=== PATIENT | male | born 1940 | race Caucasian/White ===

== ENCOUNTER → 2016-08-10 | Outpatient (CLI) | payer BC ==
[~2016-08-10] MED LIST: ACET-1256 PO; ALLO100T PO; APIX1TAB3 PO; ASPCH81 PO; ATOR-24 PO; BNC20 PO; CALC500C70 PO; CLOP1TAB15 PO; CYAN500T SL; DOCU-94 PO; FERR1TAB61 PO; GLC/500 PO; GLC500 PO; GLUCTAB7 PO; KFL500HP PO; LATA0.009 OPB; LSX20 PO; MULT-188 PO; MULT-663 PO; NTRGSL/4 UT; OLME5TAB3 PO; REPA0.5T PO; REPA1TAB5 PO; SULF10SO13 OP
[2016-08-10 11:31] LABS: ESTIMATED AVERAGE GLUCOSE 154 mg/dl; HA1C FLAG Normal (Normal)
[2016-08-10 11:44] LABS: HEMATOCRIT 38.3 % (42-52); MEAN CELL VOLUME 93.4 fL (80-100); MEAN CORPUSCULAR HEMOGLOBIN 31.2 pg (25-34); MEAN CORPUSCULAR HGB CONC 33.4 g/dl (32-36); MEAN PLATELET VOLUME 9.5 fL (7.4-10.4); PLATELET COUNT 184 K/uL (130-400); WHITE BLOOD COUNT 5.81 K/uL (4.8-10.8)
[2016-08-10 11:51] LABS: ALT/SGPT 32 U/L (12-78); BLOOD UREA NITROGEN 27 mg/dl (7-18); BUN/CREATININE RATIO 16.9 (10-20); CALCIUM 9.2 mg/dl (8.5-10.1); CARBON DIOXIDE 20 mmol/L (21-32); CHLORIDE 103 mmol/L (98-107); CHOLESTEROL 98 mg/dl (0-200); GLUCOSE 114 mg/dl (70-99); POTASSIUM 4.7 mmol/L (3.5-5.1); SODIUM 135 mmol/L (136-145)
[2016-08-10 11:52] LABS: COMPLETE YES
[2016-08-10 12:01] LABS: ALB/GLOB RATIO 1.1 (0.9-2); ALKALINE PHOSPHATASE 82 U/L (45-117); AST/SGOT 18 U/L (15-37); CHOLESTEROL/HDL RATIO 2.6; FERRITIN 75.6 ng/ml (8.0-388.0); HDL CHOLESTEROL 37 mg/dl; LDL CHOLESTEROL CALCULATED 37 mg/dl; TRIGLYCERIDES 118 mg/dl (0-150); VERY LOW DENSITY LIPOPROT CALC 24 mg/dl
== END | disposition home or self-care (01) ==
LOC: C.LAB 10:17
PROVIDERS: ATTEND Internal Medicine
DX: E11.21 Type 2 diabetes mellitus with diabetic nephropathy (principal); D64.9 Anemia, unspecified; R00.1 Bradycardia, unspecified

== ENCOUNTER → 2016-09-21 | Outpatient (CLI) | payer BC | END | disposition home or self-care (01) | LOC: C.RDSM 11:59 | PROVIDERS: ATTEND Orthopaedic Surgery Sports Medicine | DX: R52 Pain, unspecified (principal) ==

== ENCOUNTER → 2016-11-09 | Outpatient (CLI) | payer BC ==
[2016-11-09 13:00] LABS: BASO % 0.4 %; BASO ABS # 0.02 K/uL (0-0.2); COMPLETE YES; IG% 0.2 %; LYMPH % 29.9 %; LYMPH ABS # 1.61 K/uL (1.2-3.4); MEAN CELL VOLUME 94.1 fL (80-100); MEAN PLATELET VOLUME 9.3 fL (7.4-10.4); MONO % 8.3 %; NEUT % 58.2 %; PLATELET COUNT 185 K/uL (130-400); RED BLOOD COUNT 3.93 M/uL (4.7-6.1); WHITE BLOOD COUNT 5.39 K/uL (4.8-10.8)
[2016-11-09 13:05] LABS: BLOOD UREA NITROGEN 23 mg/dl (7-18); BUN/CREATININE RATIO 16.1 (10-20); CALCIUM 8.9 mg/dl (8.5-10.1); CARBON DIOXIDE 24 mmol/L (21-32); CHLORIDE 111 mmol/L (98-107); GLUCOSE 141 mg/dl (70-99); POTASSIUM 4.4 mmol/L (3.5-5.1); SODIUM 142 mmol/L (136-145)
[2016-11-09 13:12] LABS: FERRITIN 95.6 ng/ml (8.0-388.0)
[2016-11-09 13:26] LABS: ESTIMATED AVERAGE GLUCOSE 163 mg/dl; HA1C FLAG Normal (Normal)
[2016-11-09 13:42] LABS: RATIO 13.4 mcg/mg (0-30.0)
== END | disposition home or self-care (01) ==
LOC: C.LAB 11:28
PROVIDERS: ATTEND Internal Medicine
DX: E11.9 Type 2 diabetes mellitus without complications (principal); D50.9 Iron deficiency anemia, unspecified; D51.9 Vitamin B12 deficiency anemia, unspecified

== ENCOUNTER 2016-12-18 13:33 | Emergency (ER) | payer BC ==
[~2016-12-18] VITALS: Ht 182.9 cm; Wt 110.4 kg
[~2016-12-18 13:33] MED LIST changes: -ACET-1256 PO; -APIX1TAB3 PO; -GLUCTAB7 PO; -KFL500HP PO; -OLME5TAB3 PO; -REPA1TAB5 PO
[2016-12-18 13:54] VITALS: TEMP 36.6; Ht 182.9 cm; Wt 110.4 kg
--- NOTE | 2016-12-18 15:29 | EMERGENCY ROOM VISIT NOTE ---
History First contact with patient: 14:58 Chief Complaint: HEAD INJURY (MINOR) Stated Complaint: BACK OF HEAD, SCALP AVULSION, DIZZY, FALL History of Present Illness The patient is a 76 year old male who presents to the Emergency Room for a recheck of a wound on his scalp. The patient initially had a fall 2 days ago. The patient reports that he slipped off of a chair falling backwards and striking his head. There was reportedly loss of consciousness. The patient was taken to [facility]. A CT scan was reportedly performed. No internal hemorrhage was noted. The wound was dressed. He was supposed to return to the emergency department today for a recheck. The patient does admit to feeling slightly off balance today. This isn't however unusual for him. The patient suffered a stroke in 2001. He does have intermittent unsteadiness since the stroke. The patient is on Eliquis, aspirin and Plavix for a history of CVA and a flutter. Review of Systems 10 system review performed and negative unless noted in HPI or below Past Medical/Surgical History Medical Problems: (1) Mobitz type I incomplete atrioventricular block CVA A flutter History of coronary artery disease Diabetes Status post CABG x 3 in 2010 Family History FH: heart disease FHx: cancer Kidney disease Kidney stones Social History Smoking Status: Never Smoker Drug Use: none Marital Status: Housing Status: lives alone Occupation Status: retired Current/Historical Medications Scheduled Acetaminophen (Tylenol), 2 TAB PO BID Allopurinol (Zyloprim), 1 TAB PO QAM Apixaban (Eliquis), 1 TAB PO BID Atorvastatin (Lipitor), 20 MG PO HS Calcium/Vitamin D (Os-Drew 500 Plus D), 1 TAB PO TID Cephalexin Monohydrate (Cephalexin), 1 TAB PO BID Clopidogrel (Plavix), 75 MG PO QAM Cyanocobalamin (Vitamin B-12), 500 MCG SL QAM Docusate Sodium (Colace), 2 CAP PO HS Ferrous Sulfate (Iron), 1 TAB PO BID Furosemide (Furosemide), 1 TAB PO Q2D Xrotsfebget-Jcjjowojwel-Blq C- (Glucosamine Chondroitin), 1 TAB PO QPM Latanoprost (Xalatan 0.005% Oph Gregoria), 1 DROPS OPB HS Metformin HCl (Metformin HCl), 2 TABS PO DINNER Metformin Hcl (Glucophage), 500 MG PO BREAKFAST, LUNCH Multiple Vitamins W/ Minerals (Ocuvite), 1 TAB PO QAM Nitroglycerin (Nitrostat), 0.4 MG UT PRN Olmesartan Medoxomil (Olmesartan Medoxomil), 2 TAB PO QAM Repaglinide (Prandin), 1 TAB PO BID Scheduled PRN Multiple Minerals W/ Vitamins (Citracal Plus), 1 TAB PO DAILY PRN for Constipation Allergies Coded Allergies: Hydrochlorothiazide (Verified Allergy, Unknown, dizzy, 12/18/16) Losartan (Verified Allergy, Unknown, dizzy, 12/18/16) Amlodipine (Verified Adverse Reaction, Mild, vertigo, 12/18/16) Physical Exam Vital Signs Date Time Temp Pulse Resp B/P (MAP) Pulse Ox O2 Delivery O2 Flow Rate FiO2 12/18/16 18:16 61 20 140/85 99 12/18/16 15:39 62 20 144/80 98 Room Air 12/18/16 13:54 36.6 72 20 135/74 94 Room Air Physical Exam VITALS: Vitals are noted on the nurse's note and reviewed by myself. Vital signs stable. GENERAL: 76-year-old male, in no acute distress, SKIN: The skin was without rashes, erythema, edema, or bruising. There is no tenting of the skin. Capillary reflex less than 2 seconds. HEAD: Approximately 1 cm jagged, linear laceration noted at the posterior aspect of the scalp with a hematoma underlying. There is mild oozing of blood. The wound appears clean. There are no roland signs or raccoon eyes. NECK: Cervical spine is nontender EYES: Pupils equal round and reactive to light and accommodation. Conjunctivae without injection, sclerae without icterus. Extraocular movements intact. NECK:Cervical spine is nontender. No JVD. MUSCULOSKELETAL: +1 pitting edema noted in the lower extremities without any erythema, tenderness or warmth appreciated bilaterally. NEURO: Patient was alert and oriented to person place and time. Cerebellar function intact. Negative Romberg. No focal neurological deficits. Medical Decision & Procedures ER Provider Diagnostic Interpretation: Patient: VALERIO ADLER Address1: [address] Rec: [id number] Address2: Acct ID: [id number] [facility] Zip: [place] [address] Date: 1940 Sex: M Room/Bed: Ref Phy: Jose Miguel Chappell M.D. SC: CARLA Att Phy: Report #: [id number] [facility] Phy: Jose Miguel Chappell M.D. Test: HWO Admit Phy: Dethistler Operator: BRIAN Interpreting Phy: Donavon Valerio M.D. Diagnosis: BACK OF HEAD, SCALP AVULSION , DIZZY, FALL Ordering Phy: Christine Ludwig PA-C Service Date: 12/18/16 Admit Date: 12/18/16 MNE: [id number] CONF: DICTATED BY: Donavon Valerio M.D.]] CC: Manish Sifuentes M.D. Pro, Jeffrey W., M.D. Urban, Angela P., PA-C Endcc: [~ rep ct add3]] CT SCAN OF THE BRAIN WITHOUT IV CONTRAST CLINICAL HISTORY: Fall 2 days ago. Anticoagulated patient. COMPARISON STUDY: CT of the brain dated 02/14/2016. TECHNIQUE: Unenhanced axial CT scan of the brain is performed from the vertex to the skull base. CT DOSE: 614.27 mGy.cm FINDINGS: Brain parenchyma: There are age-related involutional changes noting mild to moderate patchy subcortical and periventricular microangiopathic change. Foci of left occipital and left cerebellar encephalomalacia are consistent with remote infarcts. There is no hemorrhage, mass effect, or evidence of acute territorial ischemia by CT criteria. Emerson-white matter is preserved. No extra-axial fluid collection is seen. Ventricles, sulci, cisterns: Prominent secondary to involutional change. Intracranial vasculature: There is atherosclerotic calcification of the cavernous carotid and vertebral arteries. Calvarium: The skeletal structures are osteopenic. No depressed calvarial fracture is seen. Soft tissues: There is a left posterior parietal scalp hematoma. Sinuses and mastoids: The visualized paranasal sinuses are clear. The mastoid air cells are well pneumatized. Orbits: The bony orbits are grossly intact. There are bilateral ocular lens implants. IMPRESSION: 1. Senescent changes and remote infarcts as above. There is no hemorrhage, mass effect, or evidence of acute territorial ischemia by CT criteria. 2. Left posterior parietal scalp hematoma. No depressed calvarial fracture is seen. Electronically signed by: Donavon Valerio M.D. 12/18/2016 4:12 PM Dictated Date/Time: 12/18/2016 4:08 PM The status of this report is Signed. Draft = Not yet reviewed or approved by Radiologist. Signed = Reviewed and approved by Radiologist. Procedure The wound was unbandaged, thoroughly cleansed with normal saline and repeat bandage with adequate hemostasis ED Course The patient was seen and examined CT of the head was performed and reviewed in addition to outpatient records. Medications were reviewed. The wound was examined and redressed Discharge instructions were reviewed, and the patient was discharged home in good condition Medical Decision Differential diagnosis: Skull fracture, intracranial bleed, hematoma, superficial laceration This patient is a 76-year-old male that presented for a wound recheck. He initially had a mechanical fall 2 days ago. He is on blood thinners. Outpatient records were reviewed from [facility]. CT was negative for intracranial bleed. No skull fracture was identified. Given that the patient was complaining of feeling off balance, I repeated the CAT scan to rule out any new intracranial bleed. This was negative. The wound was redressed with Fibrillar hemostatic agent with hemostasis achieved. The patient was given a referral for the wound clinic. Case management helped the arrangements. Since the fibrillar needs to be soaked prior to removal, I told the patient if he had any issues getting in with his primary care physician or wound clinic doctor, he will return to the emergency department in 48 hours. He also agreed to return sooner for any worsening symptoms or recurrent bleeding. He will continue his current medication regimen as prescribed (given his risk of CVA). Impression Primary Impression: Encounter for wound re-check Additional Impression: Head injury Departure Information Referrals Pro,Jose Miguel Rome M.D. (PCP) Patient Instructions My [facility] Problem Qualifiers
[2016-12-18] MEDS ORDERED: GELATIN SPONGE SZ 100 EXT ONE (15:30)
[2016-12-18] MEDS ORDERED: GELATIN SPONGE 12-7MM ONE (15:37)
--- NOTE | 2016-12-18 16:13 | DIAGNOSTIC IMAGING REPORT ---
CT SCAN OF THE BRAIN WITHOUT IV CONTRAST CLINICAL HISTORY: Fall 2 days ago. Anticoagulated patient. COMPARISON STUDY: CT of the brain dated 02/14/2016. TECHNIQUE: Unenhanced axial CT scan of the brain is performed from the vertex to the skull base. CT DOSE: 614.27 mGy.cm FINDINGS: Brain parenchyma: There are age-related involutional changes noting mild to moderate patchy subcortical and periventricular microangiopathic change. Foci of left occipital and left cerebellar encephalomalacia are consistent with remote infarcts. There is no hemorrhage, mass effect, or evidence of acute territorial ischemia by CT criteria. Emerson-white matter is preserved. No extra-axial fluid collection is seen. Ventricles, sulci, cisterns: Prominent secondary to involutional change. Intracranial vasculature: There is atherosclerotic calcification of the cavernous carotid and vertebral arteries. Calvarium: The skeletal structures are osteopenic. No depressed calvarial fracture is seen. Soft tissues: There is a left posterior parietal scalp hematoma. Sinuses and mastoids: The visualized paranasal sinuses are clear. The mastoid air cells are well pneumatized. Orbits: The bony orbits are grossly intact. There are bilateral ocular lens implants. IMPRESSION: 1. Senescent changes and remote infarcts as above. There is no hemorrhage, mass effect, or evidence of acute territorial ischemia by CT criteria. 2. Left posterior parietal scalp hematoma. No depressed calvarial fracture is seen. Electronically signed by: Donavon Valerio M.D. 12/18/2016 4:12 PM Dictated Date/Time: 12/18/2016 4:08 PM
--- NOTE | 2016-12-18 16:25 | EMERGENCY ROOM VISIT NOTE ---
ED Visit Note First contact with patient: 14:58 I did evaluate and examine this patient myself. I did guide management for the patient. I agree with the APC's assessment as discussed. Please see the APC's dictation for further details. I did independently review the CT scan of the head. There is no intracranial hemorrhage.
[2016-12-18] MEDS ORDERED: APIX1TAB3 PO (16:48)
[2016-12-18] MEDS ORDERED: REPA1TAB5 PO (16:48)
[2016-12-18] MEDS ORDERED: KFL500HP PO (16:48)
[2016-12-18] MEDS ORDERED: OLME5TAB3 PO (16:48)
[2016-12-18] MEDS ORDERED: LSX20 PO (16:48)
[2016-12-18] MEDS ORDERED: GLUCTAB7 PO (16:52)
[2016-12-18] MEDS ORDERED: ACET-1256 PO (16:52)
[2016-12-18 18:16] VITALS: BP 140/85; PULSE 61; O2SAT 99
[2017-01-04] MEDS ORDERED: APIX1TAB3 PO (07:27)
== END 2016-12-18 18:19 | disposition home or self-care (01) ==
LOC: C.EDB 13:35 → C.EDA 18:19
DX: Z09 Encounter for follow-up examination after completed treatment for conditions other than malignant neoplasm (principal); S01.01XA Laceration without foreign body of scalp, initial encounter; W19.XXXA Unspecified fall, initial encounter; I44.1 Atrioventricular block, second degree; I48.92 Unspecified atrial flutter; E11.9 Type 2 diabetes mellitus without complications; I25.10 Atherosclerotic heart disease of native coronary artery without angina pectoris; Z95.1 Presence of aortocoronary bypass graft; Z79.01 Long term (current) use of anticoagulants; Z86.73 Personal history of transient ischemic attack (TIA), and cerebral infarction without residual deficits; Z79.84 Long term (current) use of oral hypoglycemic drugs; Z84.1 Family history of disorders of kidney and ureter

== ENCOUNTER 2016-12-20 11:01 | Emergency (ER) | payer BC ==
[~2016-12-20] VITALS: Ht 182.9 cm; Wt 109.7 kg
[~2016-12-20 11:01] MED LIST changes: +ACET-1256 PO; +APIX1TAB3 PO; -ASPCH81 PO; -BNC20 PO; +GLUCTAB7 PO; +KFL500HP PO; +OLME5TAB3 PO; -REPA0.5T PO; +REPA1TAB5 PO; -SULF10SO13 OP
[2016-12-20 11:09] VITALS: TEMP 36.6; Ht 182.9 cm; Wt 109.7 kg
--- NOTE | 2016-12-20 12:14 | DIAGNOSTIC IMAGING REPORT ---
HEAD CT NONCONTRAST CT DOSE: 821.00 mGycm HISTORY: Trauma. Mental status change. Fall on December 16, developed dizziness, hx Subdural. Anti coag TECHNIQUE: Multiaxial CT images of the head were performed without the use of intravenous contrast. Comparison: None. Findings: The paranasal sinuses and mastoid air cells are clear. The calvarium and skull base are intact. The ventricles and sulci are within normal limits. There is no mass, hematoma, midline shift, or acute infarct. Old infarct left cerebellum. No acute intracranial hemorrhage. Impression: No acute intracranial abnormality. Chronic change. Electronically signed by: Danie Julien M.D. 12/20/2016 12:13 PM Dictated Date/Time: 12/20/2016 12:09 PM
--- NOTE | 2016-12-20 12:44 | EMERGENCY ROOM VISIT NOTE ---
History First contact with patient: 11:38 Chief Complaint: WOUND RECHECK Stated Complaint: WOUND RECHECK Nursing Triage Summary: I need my dressing rewrapped I went to [place] first and had a scalp laceration. I had dressing change done here on sunday and I cant get into wound clinic until sunday. History of Present Illness The patient is a 76 year old male who presents to the Emergency Room via private vehicle with complaints of "wound recheck". The patient states that he had a laceration repaired at the [facility], where Adaptic was applied to the wound. He then was seen here recently and had his changed out for fibrilar. He then is here today because he conducted and the wound center until Sunday. He denies any problems with the wound. He is on a requests and Plavix. He has felt dizzy for the past 5 days, and denies fevers and chills. Review of Systems A complete 6-point Review of Systems was discussed with the patient, with pertinent positives and negatives listed in the History of Present Illness. All remaining Review of Systems questions can be considered negative unless otherwise specified. Past Medical/Surgical History Medical Problems: (1) Mobitz type I incomplete atrioventricular block Family History FH: heart disease FHx: cancer Kidney disease Kidney stones Social History Smoking Status: Never Smoker Drug Use: none Marital Status: Housing Status: lives alone Occupation Status: retired Current/Historical Medications Scheduled Acetaminophen (Tylenol), 2 TAB PO BID Allopurinol (Zyloprim), 1 TAB PO QAM Apixaban (Eliquis), 1 TAB PO BID Atorvastatin (Lipitor), 20 MG PO HS Calcium/Vitamin D (Os-Drew 500 Plus D), 1 TAB PO TID Cephalexin Monohydrate (Cephalexin), 1 TAB PO BID Clopidogrel (Plavix), 75 MG PO QAM Cyanocobalamin (Vitamin B-12), 500 MCG SL QAM Docusate Sodium (Colace), 2 CAP PO HS Ferrous Sulfate (Iron), 1 TAB PO BID Furosemide (Furosemide), 1 TAB PO Q2D Bwwswubtztq-Ldjcpbvtcpn-Ytp C- (Glucosamine Chondroitin), 1 TAB PO QPM Latanoprost (Xalatan 0.005% Oph Gregoria), 1 DROPS OPB HS Metformin HCl (Metformin HCl), 2 TABS PO DINNER Metformin Hcl (Glucophage), 500 MG PO BREAKFAST, LUNCH Multiple Vitamins W/ Minerals (Ocuvite), 1 TAB PO QAM Nitroglycerin (Nitrostat), 0.4 MG UT PRN Olmesartan Medoxomil (Olmesartan Medoxomil), 2 TAB PO QAM Repaglinide (Prandin), 1 TAB PO BID Scheduled PRN Multiple Minerals W/ Vitamins (Citracal Plus), 1 TAB PO DAILY PRN for Constipation Allergies Coded Allergies: Hydrochlorothiazide (Verified Allergy, Unknown, dizzy, 12/18/16) Losartan (Verified Allergy, Unknown, dizzy, 12/18/16) Amlodipine (Verified Adverse Reaction, Mild, vertigo, 12/18/16) Physical Exam Vital Signs Date Time Temp Pulse Resp B/P (MAP) Pulse Ox O2 Delivery O2 Flow Rate FiO2 12/20/16 12:57 60 18 135/68 98 12/20/16 11:09 36.6 83 18 179/86 98 Room Air Physical Exam VITAL SIGNS - Vital signs and nursing notes were reviewed. Stable. He is hypertensive in which he was notified about. GENERAL -76-year-old male appearing his stated age who is in no acute distress. Communicates well with provider and answers questions appropriately. SKIN -there is a healing laceration on the posterior scalp. Neurologically he is intact, without deficit. Medical Decision & Procedures ER Provider Diagnostic Interpretation: HEAD CT NONCONTRAST CT DOSE: 821.00 mGycm HISTORY: Trauma. Mental status change. Fall on December 16, developed dizziness, hx Subdural. Anti coag TECHNIQUE: Multiaxial CT images of the head were performed without the use of intravenous contrast. Comparison: None. Findings: The paranasal sinuses and mastoid air cells are clear. The calvarium and skull base are intact. The ventricles and sulci are within normal limits. There is no mass, hematoma, midline shift, or acute infarct. Old infarct left cerebellum. No acute intracranial hemorrhage. Impression: No acute intracranial abnormality. Chronic change. Electronically signed by: Danie Julien M.D. 12/20/2016 12:13 PM Dictated Date/Time: 12/20/2016 12:09 PM Medical Decision Patient was seen and evaluated as above. After obtaining a thorough history and physical examination the decision was made to re-apply the patient's dressing. After a thorough discussion he indicated that he was feeling dizzy over the past few days, but has been evaluated since that time. He does have a history of subdural hematoma, and is concerned today that he may have developed one. He has had 2 CAT scans thus far since the initial injury. At this time based upon the patient presentation, I will elect to obtain a CT scan today to rule out subdural hematoma. Results as above. He was informed upon the old infarct of which she is already aware of. The wound was cleansed, appears to be healing well, the old fibrillar was removed, with new fibrillar being placed on the wound. I then chose to use Telfa as the previous wound was bandaged with 4 x 4's of which were stuck greatly. He was educated upon worrisome symptoms in which to return, had questions answered prior to discharge, and was discharged home in good condition. In evaluation treatment this patient following differential diagnoses were entertained: Encounter for wound recheck, subdural hematoma, subarachnoid hemorrhage, among others. Impression Primary Impression: Encounter for wound re-check Departure Information Dispostion Home / Self-Care Condition GOOD Referrals Pro,Jose Miguel Rome M.D. (PCP) Patient Instructions My [facility] Additional Instructions You were seen in the emergency Department for a redressing of your wound. When you follow-up with the wound care center on Sunday please tell them that a small piece of the fibrillar was placed upon the skin due to persistent oozing likely secondary to the nature of the wound as well as the elbow, skin and Plavix that you're taking. Please follow-up with your family doctor regarding her elevated blood pressure today. It was found to be 179/86. Please return to the emergency department with any new/concerning symptoms. Thank you for your time.
[2016-12-20 12:57] VITALS: BP 135/68; PULSE 60; O2SAT 98
--- NOTE | 2016-12-20 17:55 | EMERGENCY ROOM VISIT NOTE ---
ED Visit Note First contact with patient: 11:38 I have personally seen and evaluated the patient with the PA. I agree with the diagnosis and management decisions and have been personally involved in the case. Please see Rubén Valdes PA-C's notes for further details of the history, physical and visit.
[2017-01-04] MEDS ORDERED: APIX1TAB3 PO (07:27)
== END 2016-12-20 12:58 | disposition home or self-care (01) ==
LOC: C.EDB 11:03 → C.EDD 12:58
DX: Z48.00 Encounter for change or removal of nonsurgical wound dressing (principal); S01.01XD Laceration without foreign body of scalp, subsequent encounter; X58.XXXD Exposure to other specified factors, subsequent encounter; R42 Dizziness and giddiness; I44.1 Atrioventricular block, second degree; Z79.01 Long term (current) use of anticoagulants; Z79.84 Long term (current) use of oral hypoglycemic drugs; Z84.1 Family history of disorders of kidney and ureter

== ENCOUNTER → 2017-01-04 | Day surgery (SDC) | payer BC ==
[~2017-01-04] VITALS: Ht 182.9 cm; Wt 109.0 kg
[~2017-01-04] MED LIST changes: -KFL500HP PO; +LIDOCAINE HCL 2% 2 ML VIAL (20MG/ML) ONE; -NTRGSL/4 UT; +PROPOFOL IV EMULSION 10 MG/ML 20 ML VIAL IV ONE
[2017-01-04 07:09] VITALS: BP 149/72; PULSE 60; TEMP 36.7; O2SAT 96; Ht 182.9 cm; Wt 109.0 kg
--- NOTE | 2017-01-04 07:55 | Anesthesiology Progress Note ---
Anesthesia Progress Note Date of Service Jan 04, 2017. Progress Notes Patient arrived for cardioversion for atrial fibrillation and had converted on his own so no procedure necessary.
== END | disposition home or self-care (01) ==
LOC: C.CATH 06:24
PROVIDERS: ATTEND Internal Medicine Cardiovascular Disease
DX: I48.91 Unspecified atrial fibrillation (principal); I48.92 Unspecified atrial flutter; Z53.8 Procedure and treatment not carried out for other reasons; Z95.0 Presence of cardiac pacemaker; I25.10 Atherosclerotic heart disease of native coronary artery without angina pectoris; R00.1 Bradycardia, unspecified; I89.0 Lymphedema, not elsewhere classified; I44.1 Atrioventricular block, second degree; I35.8 Other nonrheumatic aortic valve disorders; E11.21 Type 2 diabetes mellitus with diabetic nephropathy; E78.5 Hyperlipidemia, unspecified; M10.9 Gout, unspecified; I10 Essential (primary) hypertension; I34.0 Nonrheumatic mitral (valve) insufficiency; I87.2 Venous insufficiency (chronic) (peripheral); Z86.73 Personal history of transient ischemic attack (TIA), and cerebral infarction without residual deficits; Z85.828 Personal history of other malignant neoplasm of skin; Z82.49 Family history of ischemic heart disease and other diseases of the circulatory system

== ENCOUNTER → 2017-03-09 | Outpatient (CLI) | payer BC ==
[~2017-03-09] MED LIST changes: -CALC500C70 PO; -LIDOCAINE HCL 2% 2 ML VIAL (20MG/ML) ONE; -PROPOFOL IV EMULSION 10 MG/ML 20 ML VIAL IV ONE
[2017-03-09 11:04] LABS: HEMATOCRIT 35.9 % (42-52); MEAN CELL VOLUME 94.7 fL (80-100); MEAN CORPUSCULAR HEMOGLOBIN 31.7 pg (25-34); MEAN CORPUSCULAR HGB CONC 33.4 g/dl (32-36); MEAN PLATELET VOLUME 9.3 fL (7.4-10.4); PLATELET COUNT 217 K/uL (130-400); RED BLOOD COUNT 3.79 M/uL (4.7-6.1); WHITE BLOOD COUNT 4.56 K/uL (4.8-10.8)
[2017-03-09 11:26] LABS: BLOOD UREA NITROGEN 33 mg/dl (7-18); BUN/CREATININE RATIO 22.3 (10-20); CALCIUM 9.3 mg/dl (8.5-10.1); CARBON DIOXIDE 22 mmol/L (21-32); CHLORIDE 107 mmol/L (98-107); CHOLESTEROL 103 mg/dl (0-200); GLUCOSE 161 mg/dl (70-99); POTASSIUM 5.1 mmol/L (3.5-5.1); SODIUM 136 mmol/L (136-145); TRIGLYCERIDES 145 mg/dl (0-150); VERY LOW DENSITY LIPOPROT CALC 29 mg/dl
[2017-03-09 11:31] LABS: CHOLESTEROL/HDL RATIO 2.9; FERRITIN 135.2 ng/ml (8.0-388.0); HDL CHOLESTEROL 36 mg/dl; LDL CHOLESTEROL CALCULATED 38 mg/dl
[2017-03-09 11:53] LABS: ESTIMATED AVERAGE GLUCOSE 180 mg/dl; HA1C FLAG Normal (Normal)
== END | disposition home or self-care (01) ==
LOC: C.LAB 09:11
PROVIDERS: ATTEND Internal Medicine
DX: E11.9 Type 2 diabetes mellitus without complications (principal); D64.9 Anemia, unspecified

== ENCOUNTER → 2017-05-23 | Outpatient (CLI) | payer BC ==
[2017-05-23 12:23] LABS: BASO % 0.6 %; BASO ABS # 0.03 K/uL (0-0.2); COMPLETE YES; EOS % 3.4 %; HEMATOCRIT 36.9 % (42-52); IG% 0.2 %; LYMPH % 32.8 %; LYMPH ABS # 1.74 K/uL (1.2-3.4); MEAN CELL VOLUME 96.9 fL (80-100); MEAN CORPUSCULAR HEMOGLOBIN 31.2 pg (25-34); MEAN CORPUSCULAR HGB CONC 32.2 g/dl (32-36); MEAN PLATELET VOLUME 9.3 fL (7.4-10.4); MONO % 7.5 %; NEUT % 55.5 %; PLATELET COUNT 183 K/uL (130-400); RED BLOOD COUNT 3.81 M/uL (4.7-6.1); WHITE BLOOD COUNT 5.31 K/uL (4.8-10.8)
[2017-05-23 12:44] LABS: ESTIMATED AVERAGE GLUCOSE 160 mg/dl; HA1C FLAG Normal (Normal)
[2017-05-23 12:57] LABS: ALT/SGPT 28 U/L (12-78); BLOOD UREA NITROGEN 21 mg/dl (7-18); BUN/CREATININE RATIO 14.5 (10-20); CALCIUM 8.8 mg/dl (8.5-10.1); CARBON DIOXIDE 21 mmol/L (21-32); CHLORIDE 109 mmol/L (98-107); CREATININE 1.45 mg/dl (0.60-1.40); GLUCOSE 142 mg/dl (70-99); MAGNESIUM 2.1 mg/dl (1.8-2.4); POTASSIUM 4.4 mmol/L (3.5-5.1); SODIUM 138 mmol/L (136-145)
[2017-05-23 13:00] LABS: ALB/GLOB RATIO 1.1 (0.9-2); ALKALINE PHOSPHATASE 88 U/L (45-117); AST/SGOT 17 U/L (15-37)
== END | disposition home or self-care (01) ==
LOC: C.LAB 10:33
PROVIDERS: ATTEND Internal Medicine
DX: N28.9 Disorder of kidney and ureter, unspecified (principal); M10.9 Gout, unspecified; E11.21 Type 2 diabetes mellitus with diabetic nephropathy

== ENCOUNTER → 2017-08-14 | Outpatient (CLI) | payer BC ==
[~2017-08-14] MED LIST changes: -ACET-1256 PO; +ATOR-22 PO; -ATOR-24 PO; +CYAN500T PO; -CYAN500T SL; -GLC500 PO; -REPA1TAB5 PO
[2017-08-14 10:40] LABS: ALT/SGPT 26 U/L (12-78); AST/SGOT 12 U/L (15-37); BLOOD UREA NITROGEN 20 mg/dl (7-18); CARBON DIOXIDE 21 mmol/L (21-32); CREATININE 1.35 mg/dl (0.60-1.40); GLUCOSE 143 mg/dl (70-99); POTASSIUM 4.5 mmol/L (3.5-5.1); SODIUM 135 mmol/L (136-145)
[2017-08-14 10:43] LABS: CHOLESTEROL 83 mg/dl (0-200); LDL CHOLESTEROL CALCULATED 19 mg/dl
[2017-08-14 10:51] LABS: HEMOGLOBIN A1C 7.5 % (4.5-5.6)
[2017-08-14 13:57] LABS: CREATININE RANDOM URINE 48.1 mg/dl
== END | disposition home or self-care (01) ==
LOC: C.LAB 09:27
PROVIDERS: ATTEND Internal Medicine
DX: E11.21 Type 2 diabetes mellitus with diabetic nephropathy (principal); E78.5 Hyperlipidemia, unspecified; D51.9 Vitamin B12 deficiency anemia, unspecified